=== PATIENT | male | born 1975 | race Caucasian/White ===

== ENCOUNTER 2021-07-10 08:27 | Outpatient (CLI) | payer BC ==
[2021-07-10 09:22] LABS: #Basophils 0.1 10x3/uL (0.0-0.2); #Eosinphils 0.1 10x3/uL (0.0-0.5); #Monocytes 0.5 10x3/uL (0.0-1.1); #Neutrophils 3.5 10x3/uL (1.5-8.4); %Basophils 0.7 % (0.0-2.0); %Lymphocytes 39.6 % (18.0-47.0); %Monocytes 7.2 % (0.0-10.0); %Neutrophils 50.9 % (40.0-75.0); Hemoglobin 14.4 g/dL (13.5-17.5); Mean Corpuscular HGB CONC 34.5 g/dL (32.0-36.0); Mean Corpuscular Hemoglobin 30.5 pg (27.0-33.0); Mean Corpuscular Volume 88.3 fl (81.2-95.1); Mean Platelet Volume 11.1 fl (7.4-10.4); Platelet Count 178 10x3/uL (150-450); RBC Distribution Width 11.9 % (11.5-14.5); Red Blood Cell (RBC) Count 4.72 10x6/uL (4.32-5.72); White Blood Cell (WBC) Count 6.9 10x3/uL (3.5-10.5)
[2021-07-10 09:36] LABS: Anion Gap 13 mmol/L (10-20); BUN (Urea Nitrogen) 13 mg/dL (8.9-20.6); Calc. Creatinine Clearance 0 mL/min (70-130); Calcium 9.3 mg/dL (7.8-10.44); Carbon Dioxide 25 mmol/L (22-29); Chloride 105 mmol/L (98-107); Glucose 97 mg/dL (70-105); Potassium 4.1 mmol/L (3.5-5.1); Sodium 139 mmol/L (136-145)
[2021-07-11 08:07] LABS: SARS-CoV-2 NAA Rapid Test Not Detected (NotDetected)
== END 2021-07-10 08:28 | disposition home or self-care (01) ==
LOC: LABBT 08:27
PROVIDERS: ATTEND Specialist
DX: Z01.812 Encounter for preprocedural laboratory examination (principal); K42.9 Umbilical hernia without obstruction or gangrene; Z20.822 Contact with and (suspected) exposure to COVID-19
CPT/HCPCS: 80048; 85025; U0002; U0003; U0005

== ENCOUNTER 2021-07-11 08:05 | Day surgery (SDC) | payer BC ==
[2021-07-07 13:21] VITALS: BMI 34.3
[2021-07-11] MEDS ORDERED: Ketorolac Tromethamine 30 MG/ML VIAL ONE (08:29)
[2021-07-11] MEDS ORDERED: Acetaminophen 500 MG TAB ONE (08:29)
[2021-07-11] MEDS ORDERED: ceFAZolin 2 GM/DEX 5% 100 ML BAG ONE (10:03)
[2021-07-11] MEDS ORDERED: Bupivacaine PF 0.5% 30 ML VIAL ONE (10:17)
[2021-07-11] MEDS ORDERED: Lidocaine 1% w/Epinephrine 1:100K 20 ML VIAL ONE (10:17)
[2021-07-11] MEDS ORDERED: Fentanyl 100 MCG/2 ML VIAL ONE (10:30)
[2021-07-11] MEDS ORDERED: Lidocaine 1% PF 5 ML VIAL ONE (10:38)
[2021-07-11] MEDS ORDERED: Rocuronium Bromide 10 MG/ML (10ML VIAL) ONE (10:38)
[2021-07-11] MEDS ORDERED: Dexamethasone 20 MG/5 ML VIAL ONE (10:38)
[2021-07-11] MEDS ORDERED: Ondansetron PF 4 MG/2 ML Vial ONE (10:38)
[2021-07-11] MEDS ORDERED: Glycopyrrolate 0.2 MG/ML 5 ML SYRINGE ONE (10:38)
[2021-07-11] MEDS ORDERED: PROPOFOL 200 MG/20 ML VIAL ONE (10:38)
== END 2021-07-11 13:40 | disposition home or self-care (01) ==
LOC: SDC 08:05
PROVIDERS: ATTEND Specialist
PROC: 0WUF0JZ Supplement Abdominal Wall with Synthetic Substitute, Open Approach (ICD-10-PCS; principal; 2021-07-11)
DX: K42.0 Umbilical hernia with obstruction, without gangrene (principal); M10.9 Gout, unspecified; M54.16 Radiculopathy, lumbar region; F17.220 Nicotine dependence, chewing tobacco, uncomplicated; E66.9 Obesity, unspecified; Z68.34 Body mass index [BMI] 34.0-34.9, adult; Z79.899 Other long term (current) drug therapy; Z88.0 Allergy status to penicillin
CPT/HCPCS: C1889; J1885; J3010; S0020